=== PATIENT | female | born 1990 | race African-American/Black ===

== ENCOUNTER 2018-02-25 08:06 | Emergency (ER) | payer OTHER ==
[~2018-02-25] VITALS: Ht 154.9 cm; Wt 68.0 kg
[~2018-02-25 08:06] MED LIST: AMOXIL500 MG; PERCOCET 5/3251 TAB PO
== END 2018-02-25 12:29 | disposition home or self-care (01) ==
LOC: ER 08:06
DX: J02.8 Acute pharyngitis due to other specified organisms (principal); R50.9 Fever, unspecified

== ENCOUNTER 2020-02-06 07:00 | Day surgery (SDC) | payer OTHER | END 2020-02-06 19:50 | disposition home or self-care (01) | LOC: CIR.AMB 07:00 | PROVIDERS: ATTEND Specialist | DX: D06.7 Carcinoma in situ of other parts of cervix (principal) ==

== ENCOUNTER 2020-12-16 13:09 | Outpatient (CLI) | payer OTHER | END 2020-12-16 14:56 | disposition home or self-care (01) | LOC: PRENATAL 13:09 | PROVIDERS: ATTEND Obstetrics & Gynecology Maternal & Fetal Medicine | DX: Z36.89 Encounter for other specified antenatal screening (principal); O36.80X1 Pregnancy with inconclusive fetal viability, fetus 1; O34.41 Maternal care for other abnormalities of cervix, first trimester; Z3A.12 12 weeks gestation of pregnancy ==

== ENCOUNTER 2021-02-09 13:16 | Outpatient (CLI) | payer OTHER | END 2021-02-09 14:00 | disposition home or self-care (01) | LOC: PRENATAL 13:16 | PROVIDERS: ATTEND Obstetrics & Gynecology Maternal & Fetal Medicine | DX: O35.0XX1 Maternal care for (suspected) central nervous system malformation in fetus, fetus 1 (principal); O35.3XX1 Maternal care for (suspected) damage to fetus from viral disease in mother, fetus 1; O98.512 Other viral diseases complicating pregnancy, second trimester; O35.1XX1 Maternal care for (suspected) chromosomal abnormality in fetus, fetus 1; Z36.89 Encounter for other specified antenatal screening; Z3A.20 20 weeks gestation of pregnancy ==

== ENCOUNTER 2021-04-04 09:02 | Outpatient (CLI) | payer OTHER | END 2021-04-04 09:45 | disposition home or self-care (01) | LOC: PRENATAL 09:02 | PROVIDERS: ATTEND Obstetrics & Gynecology Maternal & Fetal Medicine | DX: O26.843 Uterine size-date discrepancy, third trimester (principal); O10.013 Pre-existing essential hypertension complicating pregnancy, third trimester; O35.0XX1 Maternal care for (suspected) central nervous system malformation in fetus, fetus 1; O14.93 Unspecified pre-eclampsia, third trimester; Z36.89 Encounter for other specified antenatal screening; Z3A.28 28 weeks gestation of pregnancy ==

== ENCOUNTER 2021-05-10 09:34 | Inpatient (IN) | payer OTHER ==
[~2021-05-10] VITALS: Ht 154.9 cm; Wt 85.3 kg
[2021-05-10] MEDS ORDERED: TRANDATE300 MG PO (11:00)
[2021-05-10] MEDS ORDERED: PRENATABS RX T1 EACH PO (11:00)
[2021-05-13] MEDS ORDERED: MACROBID 100 M100 MG PO (07:20)
[2021-05-13] MEDS ORDERED: LABETALOL HCL200 MG PO (07:20)
== END 2021-05-13 10:42 | disposition home or self-care (01) | DRG 832 ==
LOC: OB/GYN 09:34 → LDR 09:34 → OB/GYN 05-11 08:39
PROVIDERS: ADMIT Specialist; ATTEND Specialist
PROC: 4A1HXCZ Monitoring of Products of Conception, Cardiac Rate, External Approach (ICD-10-PCS; principal; 2021-05-10)
PROC: BY4FZZZ Ultrasonography of Third Trimester, Single Fetus (ICD-10-PCS; 2021-05-10)
DX: O10.913 Unspecified pre-existing hypertension complicating pregnancy, third trimester (principal); O23.43 Unspecified infection of urinary tract in pregnancy, third trimester; O98.813 Other maternal infectious and parasitic diseases complicating pregnancy, third trimester; Z20.822 Contact with and (suspected) exposure to COVID-19; Z3A.33 33 weeks gestation of pregnancy; Z64.1 Problems related to multiparity; O26.843 Uterine size-date discrepancy, third trimester

== ENCOUNTER 2021-05-30 09:23 | Outpatient (CLI) | payer OTHER ==
[~2021-05-30 09:23] MED LIST changes: +LABETALOL HCL200 MG PO; +MACROBID 100 M100 MG PO; +PRENATABS RX T1 EACH PO; +TRANDATE300 MG PO
== END 2021-05-30 10:20 | disposition home or self-care (01) ==
LOC: PRENATAL 09:23
PROVIDERS: ATTEND Obstetrics & Gynecology Maternal & Fetal Medicine
DX: O10.019 Pre-existing essential hypertension complicating pregnancy, unspecified trimester (principal); O34.219 Maternal care for unspecified type scar from previous cesarean delivery; O14.90 Unspecified pre-eclampsia, unspecified trimester

== ENCOUNTER 2021-05-30 10:44 | Outpatient (CLI) | payer OTHER | END 2021-05-30 11:30 | disposition home or self-care (01) | LOC: NST 10:44 | PROVIDERS: ATTEND Specialist | DX: Z34.83 Encounter for supervision of other normal pregnancy, third trimester (principal) ==

== ENCOUNTER 2021-06-07 07:00 | Inpatient (IN) | payer OTHER ==
[~2021-06-07] VITALS: Ht 154.9 cm; Wt 3.2 kg
[2021-06-10] MEDS ORDERED: LABETALOL HCL200 MG PO (06:40)
[2021-06-13] MEDS ORDERED: IBUPROFEN800 MG PO ×2 (07:49→07:51)
[2021-06-13] MEDS ORDERED: LABETALOL HCL100 MG PO (07:49)
== END 2021-06-13 11:49 | disposition home or self-care (01) | DRG 785 ==
LOC: O/R 06-10 05:50 → OB/GYN 06-10 05:50
PROVIDERS: ADMIT Specialist; ATTEND Specialist
PROC: 0UB70ZZ Excision of Bilateral Fallopian Tubes, Open Approach (ICD-10-PCS; 2021-06-10)
PROC: 4A1HXCZ Monitoring of Products of Conception, Cardiac Rate, External Approach (ICD-10-PCS; 2021-06-10)
PROC: 10D00Z1 Extraction of Products of Conception, Low, Open Approach (ICD-10-PCS; principal; 2021-06-10 07:00)
DX: O34.211 Maternal care for low transverse scar from previous cesarean delivery (principal); Z30.2 Encounter for sterilization; Z20.822 Contact with and (suspected) exposure to COVID-19; Z37.0 Single live birth; Z3A.38 38 weeks gestation of pregnancy